=== PATIENT | female | born 1970 | race Caucasian/White ===

== ENCOUNTER 2016-10-18 10:55 | Emergency (ER) | payer MEDICAID ==
[2016-10-18] MEDS ORDERED: Ondansetron 4 MG/2 ML SDV IVPUSH ONE (11:31)
--- NOTE | 2016-10-18 11:36 | EDM.PDOC ---
[id number] 4d NAUSA AND STOMACH PAIN Time Seen by Provider: 10/18/16 11:33 Source: Reports: Patient History Limitations: Reports: No limitations - History of Present Illness INITIAL COMMENTS - FREE TEXT/NARRATIVE: pt is having severe lower abdomanal pain more on the rt than the left. She has had loose stools and she has been very nauseated. She has had a oopherectomy and hysterectomy. She has had abdomanal wall repair. She does not know if she still has her appendix, Timing/Duration: Reports: Day(s):, Getting worse Location: RLQ Quality: Reports: fullness, stabbing Associated Symptoms (-Female): Reports: diarrhea, nausea/vomiting - Related Data Allergies/ADRs: Allergies Allergy/AdvReac Type Severity Reaction Status Date / Time Penicillins Allergy Hives Verified 10/19/16 02:30 atorvastatin calcium AdvReac Leg Cramps Verified 10/19/16 02:30 [From Lipitor] gemfibrozil AdvReac Indigestion Verified 10/19/16 02:30 lisinopril AdvReac Cough Verified 10/19/16 02:30 Home Meds: Home Meds ClonazePAM [KlonoPIN] 0.5 mg PO BID PRN 10/28/14 [History] Escitalopram [Lexapro] 20 mg PO BID 10/28/14 [History] Fenofibrate Nanocrystallized [Fenofibrate] 145 mg PO DAILY 10/28/14 [History] Levothyroxine [Levothroid] 137 mcg PO DAILY 10/28/14 [History] Montelukast Sodium [Singulair] 10 mg PO DAILY 10/28/14 [History] Simvastatin [Zocor] 40 mg PO BEDTIME 10/28/14 [History] buPROPion [buPROPion XL] 300 mg PO DAILY 10/28/14 [History] metFORMIN [Glucophage] 1,000 mg PO DAILY PRN 10/28/14 [History] traZODone 50 mg PO BEDTIME PRN 10/28/14 [History] Albuterol [Ventolin HFA] 2 puff IH ASDIRECTED PRN 10/12/15 [History] Nitroglycerin [Nitrostat] 0.4 mg SL ASDIRECTED PRN 10/12/15 [History] Gabapentin [Neurontin] 600 mg PO TID 10/18/16 [History] Hydrochlorothiazide 25 mg PO DAILY 10/18/16 [History] Methocarbamol [Methocarbamol] 500 mg PO ASDIRECTED PRN 10/18/16 [History] Potassium Chloride 20 meq PO DAILY 10/19/16 [History] Past Medical History HEENT History: Reports: Impaired vision, Sinusitis Cardiovascular History: Reports: Angina, CAD, Heart murmur, High cholesterol, Hypertension Respiratory History: Reports: Asthma, Bronchitis, recurrent Gastrointestinal History: Reports: Cholelithiasis, GERD 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: Reports: Urinary incontinence 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: Musculoskeletal History: Reports: Arthritis, Back pain, chronic, Other (see below) Other Musculoskeletal History: spinal stenosis Neurological History: Reports: Headaches, chronic, Migraines Psychiatric History: Reports: Anxiety, Depression, Mood swings, Panic attack Other Psychiatric History: Seasonal affective disorder Endocrine/Metabolic History: Reports: Diabetes, type II, Hypothyroidism, Obesity /BMI 30+ - Infectious Disease History Infectious Disease History: Reports: Chicken pox - Past Surgical History HEENT Surgical History: Reports: Adenoidectomy, Tonsillectomy GI Surgical History: Reports: Cholecystectomy, Colonoscopy, EGD, Hernia repair/ other, Kayode fundoplication, Other (see below) Other GI Surgeries/Procedures: abdominal wall repair Female Surgical History: Reports: Hysterectomy, Salpingo-oophorectomy Other Female Surgeries/Procedures: Cervix removed, bladder reconstructive surgery, pelvic mass removal - still there, was suppose to 'shrivel up and go away on own'. Musculoskeletal Surgical History: Reports: Carpal tunnel Social & Family History - Family History Cardiac: Reports: CAD, Hypertension Psychiatric: Reports: Anxiety, Depression Endocrine/Metabolic: Reports: Diabetes, type II - Tobacco Use Smoking Status *Q: Heavy Tobacco Smoker Years of Tobacco use: 24 Packs/Tins Daily: 0.5 Used Tobacco, but Quit: Yes Month Tobacco Last Used: september 2015 Second Hand Smoke Exposure: No - Caffeine Use Caffeine Use: Reports: Soda - Alcohol Use Days Per Week of Alcohol Use: 0 - Recreational Drug Use Recreational Drug Use: No ED ROS GENERAL - Review of Systems Review Of Systems: See Below Constitutional: Reports: fever, chills, malaise HEENT: Reports: No symptoms Respiratory: Reports: No Symptoms Cardiovascular: Reports: No symptoms Endocrine: Reports: no symptoms GI/Abdominal: Reports: Abdominal pain, Other (Pt has lower abdomanal pain more on the rt than the left. ) : Reports: no symptoms Musculoskeletal: Reports: no symptoms Neurological: Reports: No Symptoms ED EXAM, GI/ABD - Physical Exam Exam: See Below Text/Narrative:: pt arrived experiencing lower abdomanal pain. She is wretching alot. She has had a previous sophy. She has been having loose stools. Exam Limited By: No limitations General Appearance: alert, moderate distress Ears: normal TMs Nose: normal inspection Throat/Mouth: Normal inspection Head: atraumatic Neck: normal inspection Respiratory/Chest: no respiratory distress Cardiovascular: regular rate, rhythm GI/Abdominal: other (pt has lower abdomanal tenderness. This is more on the rt than the left. She is tender but does not have true guarding present. ) Course - Vital Signs Last Recorded V/S: Last Vital Signs Temp 38.1 C 10/18/16 13:17 Pulse 66 10/18/16 14:07 Resp 15 10/18/16 14:07 BP 155/89 H 10/18/16 14:07 Pulse Ox 97 10/18/16 14:07 - Orders/Labs/Meds Labs: Laboratory Tests 10/18/16 10/18/16 10/18/16 Range/Units 11:37 11:42 11:42 WBC 11.4 H (4.5-11.0) K/uL RBC 4.69 (3.30-5.50) M/uL Hgb 12.4 (12.0-15.0) g/dL Hct 38.1 (36.0-48.0) % MCV 81 (80-98) fL MCH 26 L (27-31) pg MCHC 33 (32-36) % Plt Count 470 H (150-400) K/uL Neut % (Auto) 74 H (36-66) % Lymph % (Auto) 18 L (24-44) % [place] % (Auto) 7 H (2-6) % Eos % (Auto) 0 L (2-4) % Baso % (Auto) 0 (0-1) % Sodium 146 (140-148) mmol/L Potassium 2.9 L* (3.6-5.2) mmol/L Chloride 104 (100-108) mmol/L Carbon Dioxide 26 (21-32) mmol/L Anion Gap 18.9 H (5.0-14.0) mmol/L BUN 21 H (7-18) mg/dL Creatinine 1.1 H (0.6-1.0) mg/dL Est Cr Clr Drug Dosing 55.18 mL/min Estimated GFR (MDRD) 53 L (>60) Glucose 170 H (74-106) mg/dL Calcium 9.3 (8.5-10.1) mg/dL Total Bilirubin 0.3 (0.2-1.0) mg/dL AST 10 L (15-37) U/L ALT 23 (12-78) U/L Alkaline Phosphatase 66 (46-116) U/L C-Reactive Protein (0.0-0.3) mg/dL Total Protein 8.1 (6.4-8.2) g/dL Albumin 4.1 (3.4-5.0) g/dL Globulin 4.0 H (2.3-3.5) g/dL Albumin/Globulin Ratio 1.0 L (1.2-2.2) Lipase (73-393) U/L Urine Color Yellow Urine Appearance Cloudy Urine pH 6.0 (4.5-8.0) Ur Specific [place] 1.015 (1.008-1.030) Urine Protein 30 H (NEGATIVE) mg/dL Urine Glucose (UA) 250 H (NEGATIVE) mg/dL Urine Ketones Negative (NEGATIVE) mg/dL Urine Occult Blood Negative (NEGATIVE) Urine Nitrite Negative (NEGATIVE) Urine Bilirubin Small (NEGATIVE) Urine Urobilinogen 4 (NORMAL) mg/dL Ur Leukocyte Esterase Negative (NEGATIVE) Urine RBC Not seen (0-5) Urine WBC 0-5 (0-5) Ur Epithelial Cells Many Amorphous Sediment Not seen Urine Bacteria Moderate Urine Mucus Moderate 10/18/16 10/18/16 10/18/16 Range/Units 11:42 13:34 15:15 WBC (4.5-11.0) K/uL RBC (3.30-5.50) M/uL Hgb (12.0-15.0) g/dL Hct (36.0-48.0) % MCV (80-98) fL MCH (27-31) pg MCHC (32-36) % Plt Count (150-400) K/uL Neut % (Auto) (36-66) % Lymph % (Auto) (24-44) % [place] % (Auto) (2-6) % Eos % (Auto) (2-4) % Baso % (Auto) (0-1) % Sodium (140-148) mmol/L Potassium 3.1 L (3.6-5.2) mmol/L Chloride (100-108) mmol/L Carbon Dioxide (21-32) mmol/L Anion Gap (5.0-14.0) mmol/L BUN (7-18) mg/dL Creatinine (0.6-1.0) mg/dL Est Cr Clr Drug Dosing mL/min Estimated GFR (MDRD) (>60) Glucose (74-106) mg/dL Calcium (8.5-10.1) mg/dL Total Bilirubin (0.2-1.0) mg/dL AST (15-37) U/L ALT (12-78) U/L Alkaline Phosphatase (46-116) U/L C-Reactive Protein 0.19 (0.0-0.3) mg/dL Total Protein (6.4-8.2) g/dL Albumin (3.4-5.0) g/dL Globulin (2.3-3.5) g/dL Albumin/Globulin Ratio (1.2-2.2) Lipase 226 (73-393) U/L Urine Color Urine Appearance Urine pH (4.5-8.0) Ur Specific [place] (1.008-1.030) Urine Protein (NEGATIVE) mg/dL Urine Glucose (UA) (NEGATIVE) mg/dL Urine Ketones (NEGATIVE) mg/dL Urine Occult Blood (NEGATIVE) Urine Nitrite (NEGATIVE) Urine Bilirubin (NEGATIVE) Urine Urobilinogen (NORMAL) mg/dL Ur Leukocyte Esterase (NEGATIVE) Urine RBC (0-5) Urine WBC (0-5) Ur Epithelial Cells Amorphous Sediment Urine Bacteria Urine Mucus Meds: Medications Discontinued Medications Generic Name Dose Route Start Last Admin Trade Name Freq PRN Reason Stop Dose Admin Hydromorphone HCl 0.5 mg 10/18/16 12:20 10/18/16 12:48 Dilaudid IVPUSH 10/18/16 12:21 0.5 mg ONETIME ONE Administration Sodium Chloride 1,000 mls @ 999 mls/hr 10/18/16 11:45 10/18/16 11:56 Normal Saline IV 999 mls/hr ASDIRECTED RAMÓN Administration Potassium Chloride 20 meq/ 100 mls @ 50 mls/hr 10/18/16 12:17 10/18/16 13:10 Premix IV 10/18/16 14:16 Not Given ONETIME ONE Potassium Chloride 20 meq/ 112 mls @ 56 mls/hr 10/18/16 13:00 10/18/16 12:39 Lidocaine HCl 2 ml/ Sodium IV 10/18/16 14:59 56 mls/hr Chloride ONETIME ONE Administration Sodium Chloride 70 mls @ 3 mls/sec 10/18/16 12:53 10/18/16 13:00 Normal Saline IV 10/18/16 12:54 3 mls/sec ASDIRECTED ONE Administration Sodium Chloride 1,000 mls @ 500 mls/hr 10/18/16 13:45 10/18/16 13:49 Normal Saline IV 500 mls/hr ASDIRECTED RAMÓN Administration Sodium Chloride 1,000 mls @ 300 mls/hr 10/18/16 16:00 10/18/16 15:57 Normal Saline IV 300 mls/hr ASDIRECTED RAMÓN Administration Iopamidol 100 ml 10/18/16 12:53 10/18/16 13:01 Isovue-300 (61%) IV 10/18/16 12:54 100 ml . DIRECTED PRN Administration RADIOLOGY EXAM Ketorolac Tromethamine 30 mg 10/18/16 14:58 10/18/16 15:50 Toradol IVPUSH 10/18/16 14:59 30 mg ONETIME ONE Administration Lidocaine HCl 5 ml 10/18/16 12:17 10/18/16 12:43 Xylocaine-Mpf 1% INJECT 10/18/16 12:18 Not Given ONETIME ONE Lidocaine HCl 5 ml 10/18/16 16:32 10/18/16 17:51 Xylocaine-Mpf 1% INJECT 10/18/16 16:33 Not Given ONETIME ONE Ondansetron HCl 4 mg 10/18/16 11:31 10/18/16 11:53 Zofran IVPUSH 10/18/16 11:32 4 mg ONETIME ONE Administration Sodium Chloride 10 ml 10/18/16 12:53 10/18/16 13:00 Saline Flush FLUSH 10/18/16 12:54 10 ml . DIRECTED PRN Administration [id number] EXAM - Re-Assessments/Exams Free Text/Narrative Re-Assessment/Exam: 10/18/16 17:44 pt arrived with pain in lower abdoman and diarrhea. She had a neg cat scan of the abdoman. She had a k level of 2.9. . She was given kcl 20meq. A second kwas ordered and it was 3.1 She has not had any loose stools since she was here. Her pain is better. She is holding fluids down. 10/24/16 08:14 Departure - Departure Time of Disposition: 17:49 Disposition: Home, Self-Care 01 Condition: fair Clinical Impression: Abdominal pain, Hypokalemia, Dehydration, Viral illness Instructions: Hypokalemia, Abdominal Pain, Adult, [id number], Dehydration, Adult Referrals: Alfred Chan, LYNDA [Primary Care Provider] - Forms: ED Department Discharge Care Plan Goals: clear liquids, kcl 20meq daily, no work until Sunday, advance diet as tolerated. rtc if increased problem. Hosp admission was discussed with her and she wished to try it at home. see regular Dr and recheck potassium in 1 week.
[2016-10-18] MEDS ORDERED: Sodium Chloride 0.9% 1,000 ML IV SCH ×3 (11:45→16:00)
[2016-10-18] MEDS ORDERED: Potassium Chloride 20 MEQ in Premix Bag 1 BAG IV ONE (12:17)
[2016-10-18] MEDS ORDERED: HYDROmorphone 0.5 MG/0.5 ML Syringe IVPUSH ONE (12:20)
[2016-10-18] MEDS ORDERED: Iopamidol 612 MG/ML 100 ML Bottle IV PRN (12:53)
[2016-10-18] MEDS ORDERED: Sodium Chloride 0.9% 10 ML Syringe FLUSH PRN (12:53)
[2016-10-18] MEDS ORDERED: Potassium Chloride 20 MEQ, Lidocaine 1% 2 ML in Sodium Chloride 0.9% 100 ML IV ONE (13:00)
--- NOTE | 2016-10-18 13:31 | CT ---
Abdomen Pelvis w Cont Total DLP 871mGycm. INDICATION: lower abdominal pain COMPARISON: None. FINDINGS: Postoperative changes at the GE junction. Fatty infiltration of the liver. Cholecystectomy . Right renal cysts. Left pelvic kidney. Hysterectomy. Small left inguinal hernia containing a loop of nonobstructed small bowel. Tiny fluid collection superior and to the left of the bladder is uncha nged since prior exam and may represent a small ureterocele or diverticulum. Normal appendix. Transi tional lumbosacral segment with a pseudoarticulation on the left. Lumbar facet arthropathy. Postoper ative changes of the lower anterior abdominal wall. Exam otherwise unremarkable. IMPRESSION: No acute findings in the abdomen or pelvis. There has been little change since 04/06/2015 .
[2016-10-18 14:08] VITALS: BP 155/89
[2016-10-18] MEDS ORDERED: Ketorolac 30 MG/ML SDV IVPUSH ONE (14:58)
== END 2016-10-18 18:07 | disposition home or self-care (01) ==
LOC: JP.ED 11:00
DX: R10.31 Right lower quadrant pain (principal); E11.9 Type 2 diabetes mellitus without complications; E03.9 Hypothyroidism, unspecified; I25.10 Atherosclerotic heart disease of native coronary artery without angina pectoris; K21.9 Gastro-esophageal reflux disease without esophagitis; E87.6 Hypokalemia; E86.0 Dehydration; B34.9 Viral infection, unspecified; E66.9 Obesity, unspecified; J45.909 Unspecified asthma, uncomplicated; M54.9 Dorsalgia, unspecified; F17.210 Nicotine dependence, cigarettes, uncomplicated; Z90.49 Acquired absence of other specified parts of digestive tract; Z90.89 Acquired absence of other organs; G89.29 Other chronic pain; Z79.84 Long term (current) use of oral hypoglycemic drugs; Z79.899 Other long term (current) drug therapy; Z88.0 Allergy status to penicillin; Z88.8 Allergy status to other drugs, medicaments and biological substances
CPT/HCPCS: 36415; 74177; 80053; 81001; 83690; 84132; 85025; 86140; 87086; 96361; 96374; 96375; 99284; J1170; J1885; J2405; J3480; J7030; J7040; J7050; Q9967

== ENCOUNTER 2016-10-19 02:21 | Emergency (ER) | payer MEDICAID ==
[2016-10-19] MEDS ORDERED: Lactated Ringers 1,000 ML IV ONE (02:54)
[2016-10-19] MEDS ORDERED: Ondansetron 4 MG/2 ML SDV IVPUSH ONE (02:56)
[2016-10-19] MEDS ORDERED: diphenhydrAMINE 50 MG/ML SDV IVPUSH STA (03:01)
[2016-10-19] MEDS ORDERED: Potassium Chloride 20 MEQ in Premix Bag 1 BAG IV ONE (04:01)
[2016-10-19] MEDS ORDERED: Lactated Ringers 1,000 ML IV SCH (04:15)
--- NOTE | 2016-10-19 06:44 | EDM.PDOC ---
ED HPI GI/ABDOMINAL - General Chief Complaint: Gastrointestinal Problem Stated Complaint: VOMITING Time Seen by Provider: 10/19/16 02:43 Source: Reports: Patient History Limitations: Reports: No limitations - History of Present Illness INITIAL COMMENTS - FREE TEXT/NARRATIVE: History of present illness: [46-year-old female was here yesterday with some nausea vomiting diarrhea and received IV fluids and replacement therapy for a low potassium. She returns with similar symptoms although she feels like her diarrhea is slowing down. She 's had no fevers or chills or blood in her stools. She started feeling weak and dehydrated again and so came in. She had a negative abdominal pelvic CT when she was here yesterday.] Review of systems: As per history of present illness and below otherwise all systems reviewed and negative. Past medical history: As per history of present illness and as reviewed below otherwise noncontributory. Surgical history: As per history of present illness and as reviewed below otherwise noncontributory. Social history: No reported history of drug or alcohol abuse. Family history: As per history of present illness and as reviewed below otherwise noncontributory. Physical exam: HEENT: Atraumatic, normocephalic, pupils reactive, negative for conjunctival pallor or scleral icterus, mucous membranes dry, throat clear, neck supple, nontender, trachea midline. Lungs: Clear to auscultation, breath sounds equal bilaterally Heart: S1S2, regular, negative for clicks, rubs, or JVD. Abdomen: Soft, nondistended, nontender. Negative for masses or hepatosplenomegaly. Pelvis: Stable nontender. Genitourinary: Deferred. Rectal: Deferred. Extremities: Atraumatic, negative for cords or calf pain. Neurovascular unremarkable. Neuro: Awake, alert, oriented. Cranial nerves II through XII unremarkable. Cerebellum unremarkable. Motor and sensory unremarkable throughout. Exam nonfocal. Diagnostics: [CBC basic metabolic panel were done and most significant finding was a potassium of 3.0.] Therapeutics: [She was on lactated Ringer's while here and also I did give her a bolus of potassium IV and had her drink some potassium as well. She is feeling better and sleeping now and her IV fluids her almost on him so we will be discharging her and hopefully will have helped her get over the hump of this illness.] Impression: [Nausea vomiting and diarrhea] Plan: [She does have a history of a Kayode fundoplication and so if this problem persists or one needs to consider the possibility that some how that's giving her trouble and so she would need to followup in the clinic to pursue that consideration] Definitive disposition and diagnosis as appropriate pending reevaluation and review of above. - Related Data Allergies/ADRs: Allergies Allergy/AdvReac Type Severity Reaction Status Date / Time Penicillins Allergy Hives Verified 10/19/16 02:30 atorvastatin calcium AdvReac Leg Cramps Verified 10/19/16 02:30 [From Lipitor] gemfibrozil AdvReac Indigestion Verified 10/19/16 02:30 lisinopril AdvReac Cough Verified 10/19/16 02:30 Home Meds: Home Meds ClonazePAM [KlonoPIN] 0.5 mg PO BID PRN 10/28/14 [History] Escitalopram [Lexapro] 20 mg PO BID 10/28/14 [History] Fenofibrate Nanocrystallized [Fenofibrate] 145 mg PO DAILY 10/28/14 [History] Levothyroxine [Levothroid] 137 mcg PO DAILY 10/28/14 [History] Montelukast Sodium [Singulair] 10 mg PO DAILY 10/28/14 [History] Simvastatin [Zocor] 40 mg PO BEDTIME 10/28/14 [History] buPROPion [buPROPion XL] 300 mg PO DAILY 10/28/14 [History] metFORMIN [Glucophage] 1,000 mg PO DAILY PRN 10/28/14 [History] traZODone 50 mg PO BEDTIME PRN 10/28/14 [History] Albuterol [Ventolin HFA] 2 puff IH ASDIRECTED PRN 10/12/15 [History] Nitroglycerin [Nitrostat] 0.4 mg SL ASDIRECTED PRN 10/12/15 [History] Gabapentin [Neurontin] 600 mg PO TID 10/18/16 [History] Hydrochlorothiazide 25 mg PO DAILY 10/18/16 [History] Methocarbamol [Methocarbamol] 500 mg PO ASDIRECTED PRN 10/18/16 [History] Past Medical History HEENT History: Reports: Impaired vision, Sinusitis Cardiovascular History: Reports: Angina, CAD, Heart murmur, High cholesterol, Hypertension Respiratory History: Reports: Asthma, Bronchitis, recurrent Gastrointestinal History: Reports: Cholelithiasis, GERD 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: 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: Musculoskeletal History: Reports: Arthritis, Back pain, chronic, Other (see below) Other Musculoskeletal History: spinal stenosis Neurological History: Reports: Headaches, chronic, Migraines Psychiatric History: Reports: Anxiety, Depression, Mood swings, Panic attack Other Psychiatric History: Seasonal affective disorder Endocrine/Metabolic History: Reports: Diabetes, type II, Hypothyroidism, Obesity /BMI 30+ - Infectious Disease History Infectious Disease History: Reports: Chicken pox - Past Surgical History HEENT Surgical History: Reports: Adenoidectomy, Tonsillectomy GI Surgical History: Reports: Cholecystectomy, Colonoscopy, EGD, Hernia repair/ other, Kayode fundoplication, Other (see below) Other GI Surgeries/Procedures: abdominal wall repair Female Surgical History: Reports: Hysterectomy, Salpingo-oophorectomy Other Female Surgeries/Procedures: Cervix removed, bladder reconstructive surgery, pelvic mass removal - still there, was suppose to 'shrivel up and go away on own'. Musculoskeletal Surgical History: Reports: Carpal tunnel Social & Family History - Family History Cardiac: Reports: CAD, Hypertension Psychiatric: Reports: Anxiety, Depression Endocrine/Metabolic: Reports: Diabetes, type II - Tobacco Use Smoking Status *Q: Current Every Day Smoker Years of Tobacco use: 30 Packs/Tins Daily: 0.5 Used Tobacco, but Quit: No Month Tobacco Last Used: september 2015 Second Hand Smoke Exposure: Yes - Caffeine Use Caffeine Use: Reports: Soda - Alcohol Use Days Per Week of Alcohol Use: 0 - Recreational Drug Use Recreational Drug Use: No ED ROS GENERAL - Review of Systems Review Of Systems: ROS reveals no pertinent complaints other than HPI. ED EXAM, GI/ABD - Physical Exam Exam: See Below Course - Vital Signs Last Recorded V/S: Last Vital Signs Temp 36.4 C 10/19/16 02:38 Pulse 56 L 10/19/16 02:38 Resp 20 10/19/16 02:38 BP 141/98 H 10/19/16 02:38 Pulse Ox 98 10/19/16 02:38 - Orders/Labs/Meds Orders: Active Orders 24 hr Category Date Time Status Lactated Ringers [Ringers, Lactated] 1,000 ml Med 10/19/16 04:15 Active IV ASDIRECTED Medication Orders Lactated Ringer's (Ringers, Lactated) 1,000 mls @ 999 mls/hr IV ASDIRECTED RAMÓN Last Admin: 10/19/16 04:12 Dose: 999 mls/hr Labs: Laboratory Tests 10/19/16 10/19/16 Range/Units 02:54 02:54 WBC 9.5 (4.5-11.0) K/uL RBC 4.52 (3.30-5.50) M/uL Hgb 11.7 L (12.0-15.0) g/dL Hct 37.5 (36.0-48.0) % MCV 83 (80-98) fL MCH 26 L (27-31) pg MCHC 31 L (32-36) % Plt Count 423 H (150-400) K/uL Neut % (Auto) 67 H (36-66) % Lymph % (Auto) 27 (24-44) % [place] % (Auto) 6 (2-6) % Eos % (Auto) 0 L (2-4) % Baso % (Auto) 0 (0-1) % Sodium 147 (140-148) mmol/L Potassium 3.0 L (3.6-5.2) mmol/L Chloride 109 H (100-108) mmol/L Carbon Dioxide 25 (21-32) mmol/L Anion Gap 16.0 H (5.0-14.0) mmol/L BUN 20 H (7-18) mg/dL Creatinine 1.0 (0.6-1.0) mg/dL Est Cr Clr Drug Dosing 60.70 mL/min Estimated GFR (MDRD) 60 (>60) Glucose 181 H (74-106) mg/dL Calcium 9.1 (8.5-10.1) mg/dL Meds: Medications Generic Name Dose Route Start Last Admin Trade Name Freq PRN Reason Stop Dose Admin Lactated Ringer's 1,000 mls @ 999 mls/hr 10/19/16 04:15 10/19/16 04:12 Ringers, Lactated IV 999 mls/hr ASDIRECTED RAMÓN Administration Discontinued Medications Generic Name Dose Route Start Last Admin Trade Name Freq PRN Reason Stop Dose Admin Diphenhydramine HCl 25 mg 10/19/16 03:01 10/19/16 03:08 Benadryl IVPUSH 04/13/17 03:02 25 mg NOW STA Administration Lactated Ringer's 1,000 mls @ 999 mls/hr 10/19/16 02:54 10/19/16 03:06 Ringers, Lactated IV 10/19/16 03:54 999 mls/hr BOLUS ONE Administration Potassium Chloride 20 meq/ 100 mls @ 50 mls/hr 10/19/16 04:01 10/19/16 04:37 Premix IV 10/19/16 06:00 50 mls/hr ONETIME ONE Administration Lidocaine HCl 2 ml 10/19/16 04:21 10/19/16 04:39 Xylocaine-Mpf 1% INJECT 10/19/16 04:22 2 ml ONETIME ONE Administration Ondansetron HCl 4 mg 10/19/16 02:56 10/19/16 03:07 Zofran IVPUSH 10/19/16 02:57 4 mg ONETIME ONE Administration Departure - Departure Time of Disposition: 06:42 Disposition: Home, Self-Care 01 Condition: good Clinical Impression: Nausea and vomiting Qualifiers: Vomiting type: unspecified Vomiting Intractability: non-intractable Qualified Code(s): R11.2 - Nausea with vomiting, unspecified Diarrhea Qualifiers: Diarrhea type: unspecified type Qualified Code(s): R19.7 - Diarrhea, unspecified Forms: ED Department Discharge Additional Instructions: Please do not hesitate to return if you feel like you are getting dehydrated again and need more IV fluids. As we discussed if this problem persists perhaps you should followup with her doctor as your prior surgery the Kayode fundoplication could possibly be contributing to your problem. - My Orders Last 24 Hours: My Active Orders 10/19/16 04:15 Lactated Ringers [Ringers, Lactated] 1,000 ml IV ASDIRECTED - Assessment/Plan Last 24 Hours: My Active Orders 10/19/16 04:15 Lactated Ringers [Ringers, Lactated] 1,000 ml IV ASDIRECTED
[2016-10-19 07:18] VITALS: BP 149/98
== END 2016-10-19 07:22 | disposition home or self-care (01) ==
LOC: JP.ED 02:21
DX: R11.2 Nausea with vomiting, unspecified (principal); R19.7 Diarrhea, unspecified; I20.9 Angina pectoris, unspecified; I25.10 Atherosclerotic heart disease of native coronary artery without angina pectoris; I10 Essential (primary) hypertension; E78.00 Pure hypercholesterolemia, unspecified; J45.909 Unspecified asthma, uncomplicated; F32.9 Major depressive disorder, single episode, unspecified; F41.0 Panic disorder [episodic paroxysmal anxiety]; E03.9 Hypothyroidism, unspecified; E11.9 Type 2 diabetes mellitus without complications; F17.210 Nicotine dependence, cigarettes, uncomplicated; E66.9 Obesity, unspecified; Z68.34 Body mass index [BMI] 34.0-34.9, adult; Z90.49 Acquired absence of other specified parts of digestive tract; Z90.710 Acquired absence of both cervix and uterus; Z90.721 Acquired absence of ovaries, unilateral; Z98.890 Other specified postprocedural states; Z79.899 Other long term (current) drug therapy; Z88.0 Allergy status to penicillin; Z88.8 Allergy status to other drugs, medicaments and biological substances
CPT/HCPCS: 36415; 80048; 85025; 96361; 96374; 96375; 99284; J1200; J2405; J3480; J7120

== ENCOUNTER 2016-10-20 12:53 | Emergency (ER) | payer MEDICAID ==
[2016-10-20] MEDS ORDERED: Sodium Chloride 0.9% 1,000 ML IV SCH (16:00)
--- NOTE | 2016-10-20 16:03 | EDM.PDOC ---
ED HPI GI/ABDOMINAL - General Chief Complaint: Gastrointestinal Problem Stated Complaint: NAUSEA/VOMITING Time Seen by Provider: 10/20/16 15:06 Source: Reports: Patient History Limitations: Reports: No limitations - History of Present Illness INITIAL COMMENTS - FREE TEXT/NARRATIVE: This patient comes in with nausea and vomiting. It's been going on for one week since last Sunday. She came to the emergency room department at that time and Dr. Olivera wanted to admit her but the patient wanted to try at home. She said a she went home and 8 hours later she had to come back to the ER. She continues to try to drink liquids but just can't hold anything down. Basically she cannot eat or drink anything. She had a little bit of fever 2 days ago. Initially Zofran helped her hold down clear liquids but doesn't seem to help anymore. She's a little bit dizzy standing. She does have just a little bit of pain in the right infrascapular area and it hurts a little bit to breathe. She denies shortness of breath. She said previously an abdominal CT was negative She had a little bit of diarrhea at the beginning of this illness then it stopped. She started having some diarrhea this morning but took some Imodium and it helped. She has a history of diabetes and asthma. - Related Data Allergies/ADRs: Allergies Allergy/AdvReac Type Severity Reaction Status Date / Time Penicillins Allergy Hives Verified 10/19/16 02:30 atorvastatin calcium AdvReac Leg Cramps Verified 10/19/16 02:30 [From Lipitor] gemfibrozil AdvReac Indigestion Verified 10/19/16 02:30 lisinopril AdvReac Cough Verified 10/19/16 02:30 Home Meds: Home Meds ClonazePAM [KlonoPIN] 0.5 mg PO BID PRN 10/28/14 [History] Escitalopram [Lexapro] 20 mg PO BID 10/28/14 [History] Fenofibrate Nanocrystallized [Fenofibrate] 145 mg PO DAILY 10/28/14 [History] Levothyroxine [Levothroid] 137 mcg PO DAILY 10/28/14 [History] Montelukast Sodium [Singulair] 10 mg PO DAILY 10/28/14 [History] Simvastatin [Zocor] 40 mg PO BEDTIME 10/28/14 [History] buPROPion [buPROPion XL] 300 mg PO DAILY 10/28/14 [History] metFORMIN [Glucophage] 1,000 mg PO DAILY PRN 10/28/14 [History] traZODone 50 mg PO BEDTIME PRN 10/28/14 [History] Albuterol [Ventolin HFA] 2 puff IH ASDIRECTED PRN 10/12/15 [History] Nitroglycerin [Nitrostat] 0.4 mg SL ASDIRECTED PRN 10/12/15 [History] Gabapentin [Neurontin] 600 mg PO TID 10/18/16 [History] Hydrochlorothiazide 25 mg PO DAILY 10/18/16 [History] Methocarbamol [Methocarbamol] 500 mg PO ASDIRECTED PRN 10/18/16 [History] Potassium Chloride 20 meq PO DAILY 10/19/16 [History] Past Medical History HEENT History: Reports: Impaired vision, Sinusitis Cardiovascular History: Reports: Angina, CAD, Heart murmur, High cholesterol, Hypertension Respiratory History: Reports: Asthma, Bronchitis, recurrent Gastrointestinal History: Reports: Cholelithiasis, GERD 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: Reports: Urinary incontinence [employer] WORKER History: Reports: Musculoskeletal History: Reports: Arthritis, Back pain, chronic, Other (see below) Other Musculoskeletal History: spinal stenosis Neurological History: Reports: Headaches, chronic, Migraines Psychiatric History: Reports: Anxiety, Depression, Mood swings, Panic attack Other Psychiatric History: Seasonal affective disorder Endocrine/Metabolic History: Reports: Diabetes, type II, Hypothyroidism, Obesity /BMI 30+ - Infectious Disease History Infectious Disease History: Reports: Chicken pox - Past Surgical History HEENT Surgical History: Reports: Adenoidectomy, Tonsillectomy GI Surgical History: Reports: Cholecystectomy, Colonoscopy, EGD, Hernia repair/ other, Akyode fundoplication, Other (see below) Other GI Surgeries/Procedures: abdominal wall repair Female Surgical History: Reports: Hysterectomy, Salpingo-oophorectomy Other Female Surgeries/Procedures: Cervix removed, bladder reconstructive surgery, pelvic mass removal - still there, was suppose to 'shrivel up and go away on own'. Musculoskeletal Surgical History: Reports: Carpal tunnel Social & Family History - Family History Cardiac: Reports: CAD, Hypertension Psychiatric: Reports: Anxiety, Depression Endocrine/Metabolic: Reports: Diabetes, type II - Tobacco Use Smoking Status *Q: Current Some Day Smoker Years of Tobacco use: 30 Packs/Tins Daily: 0.5 Used Tobacco, but Quit: No Month Tobacco Last Used: september 2015 Second Hand Smoke Exposure: No - Caffeine Use Caffeine Use: Reports: Coffee Other Caffeine Use: 1 cup a day - Alcohol Use Days Per Week of Alcohol Use: 0 - Recreational Drug Use Recreational Drug Use: No ED ROS GENERAL - Review of Systems Review Of Systems: See Below Constitutional: Reports: chills, weakness, fatigue HEENT: Reports: No symptoms Respiratory: Reports: No Symptoms, Other (See HPI) Cardiovascular: Reports: No symptoms Endocrine: Reports: no symptoms GI/Abdominal: Reports: Diarrhea, Nausea, Vomiting. Denies: Abdominal pain : Reports: no symptoms Musculoskeletal: Reports: no symptoms Skin: Reports: no symptoms Neurological: Reports: No Symptoms Psychiatric: Reports: No symptoms ED EXAM, GI/ABD - Physical Exam Exam: See Below Exam Limited By: No limitations General Appearance: alert, obese (As well as a data data thus 5) Eyes: bilateral: normal appearance Ears: normal external exam Nose: normal inspection Throat/Mouth: Normal oropharynx Head: atraumatic Neck: normal inspection Respiratory/Chest: lungs clear, normal breath sounds, other (There some mild tenderness in the right infrascapular area) Cardiovascular: normal peripheral pulses, regular rate, rhythm, no murmur GI/Abdominal: soft, non tender Extremities: normal inspection Neurological: alert, oriented, CN II-XII intact, no motor/sensory deficits Psychiatric: normal affect Skin Exam: Warm, Dry Course - Vital Signs Last Recorded V/S: Last Vital Signs Temp 37.3 C 10/20/16 15:06 Pulse 50 L 10/20/16 17:16 Resp 20 10/20/16 17:16 BP 140/80 10/20/16 17:16 Pulse Ox 100 10/20/16 17:16 - Orders/Labs/Meds Orders: Active Orders 24 hr Category Date Time Status EKG Documentation Completion [RC] ASDIRECTED Care 10/20/16 15:57 Active Chest 2V [CR] Urgent Exams 10/20/16 15:56 Taken Sodium Chloride 0.9% [Normal Saline] 1,000 ml Med 10/20/16 16:00 Active IV ASDIRECTED EKG 12 Lead [EK] Urgent Ther 10/20/16 15:56 Ordered Medication Orders Sodium Chloride (Normal Saline) 1,000 mls @ 999 mls/hr IV ASDIRECTED RAMÓN Last Admin: 10/20/16 16:37 Dose: 999 mls/hr Labs: Laboratory Tests 10/20/16 10/20/16 10/20/16 Range/Units 16:06 16:06 16:06 WBC 8.7 (4.5-11.0) K/uL RBC 4.46 (3.30-5.50) M/uL Hgb 11.5 L (12.0-15.0) g/dL Hct 36.5 (36.0-48.0) % MCV 82 (80-98) fL MCH 26 L (27-31) pg MCHC 32 (32-36) % Plt Count 375 (150-400) K/uL Neut % (Auto) 68 H (36-66) % Lymph % (Auto) 24 (24-44) % [place] % (Auto) 7 H (2-6) % Eos % (Auto) 0 L (2-4) % Baso % (Auto) 1 (0-1) % D-Dimer, Quantitative 138 (0.0-400.0) ng/mL Sodium 145 (140-148) mmol/L Potassium 3.1 L (3.6-5.2) mmol/L Chloride 108 (100-108) mmol/L Carbon Dioxide 23 (21-32) mmol/L Anion Gap 17.1 H (5.0-14.0) mmol/L BUN 18 (7-18) mg/dL Creatinine 0.9 (0.6-1.0) mg/dL Est Cr Clr Drug Dosing 67.45 mL/min Estimated GFR (MDRD) > 60 (>60) Glucose 152 H (74-106) mg/dL Calcium 8.8 (8.5-10.1) mg/dL Total Bilirubin 0.3 (0.2-1.0) mg/dL AST 12 L (15-37) U/L ALT 18 (12-78) U/L Alkaline Phosphatase 58 (46-116) U/L Troponin I < 0.017 (0.000-0.056) ng/mL Total Protein 7.2 (6.4-8.2) g/dL Albumin 3.7 (3.4-5.0) g/dL Globulin 3.5 (2.3-3.5) g/dL Albumin/Globulin Ratio 1.1 L (1.2-2.2) Urine Color Urine Appearance Urine pH (4.5-8.0) Ur Specific [place] (1.008-1.030) Urine Protein (NEGATIVE) mg/dL Urine Glucose (UA) (NEGATIVE) mg/dL Urine Ketones (NEGATIVE) mg/dL Urine Occult Blood (NEGATIVE) Urine Nitrite (NEGATIVE) Urine Bilirubin (NEGATIVE) Urine Urobilinogen (NORMAL) mg/dL Ur Leukocyte Esterase (NEGATIVE) Urine RBC (0-5) Urine WBC (0-5) Ur Epithelial Cells Amorphous Sediment Urine Bacteria Urine Mucus 10/20/16 Range/Units 18:31 WBC (4.5-11.0) K/uL RBC (3.30-5.50) M/uL Hgb (12.0-15.0) g/dL Hct (36.0-48.0) % MCV (80-98) fL MCH (27-31) pg MCHC (32-36) % Plt Count (150-400) K/uL Neut % (Auto) (36-66) % Lymph % (Auto) (24-44) % [place] % (Auto) (2-6) % Eos % (Auto) (2-4) % Baso % (Auto) (0-1) % D-Dimer, Quantitative (0.0-400.0) ng/mL Sodium (140-148) mmol/L Potassium (3.6-5.2) mmol/L Chloride (100-108) mmol/L Carbon Dioxide (21-32) mmol/L Anion Gap (5.0-14.0) mmol/L BUN (7-18) mg/dL Creatinine (0.6-1.0) mg/dL Est Cr Clr Drug Dosing mL/min Estimated GFR (MDRD) (>60) Glucose (74-106) mg/dL Calcium (8.5-10.1) mg/dL Total Bilirubin (0.2-1.0) mg/dL AST (15-37) U/L ALT (12-78) U/L Alkaline Phosphatase (46-116) U/L Troponin I (0.000-0.056) ng/mL Total Protein (6.4-8.2) g/dL Albumin (3.4-5.0) g/dL Globulin (2.3-3.5) g/dL Albumin/Globulin Ratio (1.2-2.2) Urine Color Yellow Urine Appearance Slightly cloudy Urine pH 8.0 (4.5-8.0) Ur Specific [place] 1.020 (1.008-1.030) Urine Protein Negative (NEGATIVE) mg/dL Urine Glucose (UA) 50 H (NEGATIVE) mg/dL Urine Ketones Negative (NEGATIVE) mg/dL Urine Occult Blood Negative (NEGATIVE) Urine Nitrite Negative (NEGATIVE) Urine Bilirubin Negative (NEGATIVE) Urine Urobilinogen 4 (NORMAL) mg/dL Ur Leukocyte Esterase Negative (NEGATIVE) Urine RBC 0-5 (0-5) Urine WBC 0-5 (0-5) Ur Epithelial Cells Moderate Amorphous Sediment Moderate Urine Bacteria Few Urine Mucus Numerous Meds: Medications Generic Name Dose Route Start Last Admin Trade Name Freq PRN Reason Stop Dose Admin Sodium Chloride 1,000 mls @ 999 mls/hr 10/20/16 16:00 10/20/16 16:37 Normal Saline IV 999 mls/hr ASDIRECTED RAMÓN Administration Discontinued Medications Generic Name Dose Route Start Last Admin Trade Name Freq PRN Reason Stop Dose Admin Ketorolac Tromethamine 30 mg 10/20/16 18:00 10/20/16 18:19 Toradol IVPUSH 10/20/16 18:01 30 mg ONETIME ONE Administration Ondansetron HCl 4 mg 10/20/16 17:42 10/20/16 17:55 Zofran IVPUSH 10/20/16 17:43 4 mg ONETIME ONE Administration - Radiology Interpretation Free Text/Narrative:: Normal heart size normal lung markings - Re-Assessments/Exams Free Text/Narrative Re-Assessment/Exam: 10/20/16 19:12 The patient received 1 L of IV normal saline felt much better. She also received Toradol 30 mg IV for her infrascapular pain that has been relieved. She's feeling a lot better now. We discussed a clear liquid diet. She has plenty of Zofran at home. She's also been using some Imodium we also discussed potassium replacement Departure - Departure Time of Disposition: 19:13 Disposition: Home, Self-Care 01 Condition: fair Clinical Impression: Acute gastroenteritis Forms: ED Department Discharge Additional Instructions: Start off with a clear liquid diet. A good one would be something like Gatorade with the addition of about 1/4 teaspoon of salt and about 1/2 teaspoon of salt substitute (salt substitute is potassium) add this to 1 quart. It should be just enough to barely taste it. You should drink at least about 3 quarts per day. He do this for the next couple of days. Start adding in a bland diet also. Rice is a good food to start with. You can advance her diet as tolerated. If you have diarrhea the use Imodium. Use Tylenol if needed for pain. See your Dr. if no better in 2 or 3 days - My Orders Last 24 Hours: My Active Orders 10/20/16 15:56 Chest 2V [CR] Urgent EKG 12 Lead [EK] Urgent 10/20/16 15:57 EKG Documentation Completion [RC] ASDIRECTED 10/20/16 16:00 Sodium Chloride 0.9% [Normal Saline] 1,000 ml IV ASDIRECTED - Assessment/Plan Last 24 Hours: My Active Orders 10/20/16 15:56 Chest 2V [CR] Urgent EKG 12 Lead [EK] Urgent 10/20/16 15:57 EKG Documentation Completion [RC] ASDIRECTED 10/20/16 16:00 Sodium Chloride 0.9% [Normal Saline] 1,000 ml IV ASDIRECTED
[2016-10-20] MEDS ORDERED: Ondansetron 4 MG/2 ML SDV IVPUSH ONE (17:42)
[2016-10-20] MEDS ORDERED: Ketorolac 30 MG/ML SDV IVPUSH ONE (18:00)
[2016-10-20 19:15] VITALS: BP 140/68
--- NOTE | 2016-10-23 09:21 | CR ---
Chest 2V HISTORY: No Clinical Info FINDINGS: Heart size within normal limits. Pulmonary vasculature within normal limits. No evidence f or focal consolidation or cardiopulmonary process. IMPRESSION: No radiographic evidence for acute cardiopulmonary process.
== END 2016-10-20 19:38 | disposition home or self-care (01) ==
LOC: JP.ED 12:53
DX: K52.9 Noninfective gastroenteritis and colitis, unspecified (principal); I25.10 Atherosclerotic heart disease of native coronary artery without angina pectoris; I20.9 Angina pectoris, unspecified; I10 Essential (primary) hypertension; E78.00 Pure hypercholesterolemia, unspecified; J45.909 Unspecified asthma, uncomplicated; K21.9 Gastro-esophageal reflux disease without esophagitis; F32.9 Major depressive disorder, single episode, unspecified; F41.0 Panic disorder [episodic paroxysmal anxiety]; E11.9 Type 2 diabetes mellitus without complications; E03.9 Hypothyroidism, unspecified; F17.210 Nicotine dependence, cigarettes, uncomplicated; E66.9 Obesity, unspecified; Z68.33 Body mass index [BMI] 33.0-33.9, adult; Z90.49 Acquired absence of other specified parts of digestive tract; Z90.710 Acquired absence of both cervix and uterus; Z90.721 Acquired absence of ovaries, unilateral; Z98.890 Other specified postprocedural states; Z79.899 Other long term (current) drug therapy; Z88.0 Allergy status to penicillin; Z88.8 Allergy status to other drugs, medicaments and biological substances
CPT/HCPCS: 36415; 71020; 80053; 81001; 84484; 85025; 85379; 93005; 96361; 96374; 96375; 99284; J1885; J2405; J7040

== ENCOUNTER 2016-12-29 07:01 | Day surgery (SDC) | payer MEDICAID ==
[2016-12-29] MEDS ORDERED: Dextrose 5%-Lactated Ringers 1,000 ML IV SCH (08:30)
[2016-12-29] MEDS ORDERED: fentaNYL 100 MCG/2 ML SDV ONE (08:59)
[2016-12-29] MEDS ORDERED: Propofol 200 MG/20 ML SDV ONE (08:59)
[2016-12-29] MEDS ORDERED: Midazolam 1 MG/ML 2 ML SDV ONE (09:00)
[2016-12-29] MEDS ORDERED: Glycopyrrolate 0.2 MG/ML 2 ML SYRINGE IVPUSH ONE (09:00)
[2016-12-29 10:04] VITALS: BP 138/88
--- NOTE | 2016-12-29 17:19 | OR ---
DATE OF PROCEDURE: 12/29/2016 PREOPERATIVE DIAGNOSES: Nausea, vomiting, and epigastric pain associated with diarrhea. POSTOPERATIVE DIAGNOSES: 1. Small hiatal hernia associated with mild gastroesophageal reflux disease. 2. Mild antral gastritis. OPERATIVE PROCEDURES: Esophagogastroduodenoscopy with, 1. Biopsies of the antrum for CLOtest. 2. Biopsies of the esophagogastric junction for histologic evaluation. ANESTHESIA: IV sedation. INDICATION FOR PROCEDURE: This is a 46-year-old presenting with recent increasing nausea and vomiting along with some diarrhea. She also has some epigastric pain. She is not presently on any antisecretory medications. Plan is to proceed with an upper GI endoscopy with biopsies as indicated. Potential risks including bleeding and perforation were discussed, and the patient wishes to proceed. DETAILS OF PROCEDURE: The patient was taken to the operating room and placed in a left lateral decubitus position. IV sedation was administered after which the upper GI endoscope was passed orally through the length of the esophagus into the stomach with retroflexion view of the fundus, thereafter through the pyloric channel and into the duodenum to the junction of 3rd and 4th portions. FINDINGS: Included normal hypopharynx, larynx, upper esophageal sphincter, and esophageal body. At the EG junction, there was a small hiatal hernia present. There was some mild edema and friability of the distal esophageal mucosa. No erosions or ulcers were seen and no stricturing identified. Apart from the small hiatal hernia, the proximal stomach was unremarkable. There was some mild patchy redness in the pre-pyloric area, but without erosions or ulcers, and the pyloric channel and duodenum were unremarkable. At this point, biopsies were obtained from the antrum and sent for CLOtest for H. pylori. Multiple biopsies were obtained from the esophagogastric junction and sent for histologic evaluation. Minimal bleeding from the biopsy sites was seen and the procedure then concluded. The patient will be started on Protonix 40 mg a day and then she will be following up with Alfred Chan PA-C in [facility] in 7-10 days. Marcel Nguyen MD /[id number]
== END 2016-12-29 10:34 | disposition home or self-care (01) ==
LOC: JP.SDS 07:01
PROVIDERS: ATTEND Surgery
DX: K31.89 Other diseases of stomach and duodenum (principal); K44.9 Diaphragmatic hernia without obstruction or gangrene; I10 Essential (primary) hypertension; J45.909 Unspecified asthma, uncomplicated; F41.9 Anxiety disorder, unspecified; F32.9 Major depressive disorder, single episode, unspecified; E11.9 Type 2 diabetes mellitus without complications; E03.9 Hypothyroidism, unspecified; E66.9 Obesity, unspecified; Z79.4 Long term (current) use of insulin; Z88.0 Allergy status to penicillin; Z88.8 Allergy status to other drugs, medicaments and biological substances
CPT/HCPCS: 43239; 87081; J2250; J2704; J3010; J7042; 88305

== ENCOUNTER 2017-12-30 03:40 | Emergency (ER) | payer MEDICAID ==
[2017-12-30 03:56] VITALS: BP 147/84
[2017-12-30] MEDS ORDERED: Ketorolac 60 MG/2 ML SDV IM ONE (04:08)
--- NOTE | 2017-12-30 04:11 | EDM.PDOC ---
ED HPI GENERAL MEDICAL PROBLEM - General Chief Complaint: Lower Extremity Injury/Pain Stated Complaint: RIGHT LEG PAIN Time Seen by Provider: 12/30/17 04:08 Source of Information: Reports: Patient, RN Notes Reviewed History Limitations: Reports: No Limitations - History of Present Illness INITIAL COMMENTS - FREE TEXT/NARRATIVE: 47-year-old female presents to the emergency department today complaint of right leg pain, she states she's had pain for about 24 hours, the reason she presents to the emergency department today for a.m. is that she states she cannot take the pain any longer. 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 periods of time remote history of DVT in the family Right Leg Pain Score (Numeric/FACES): 8 - Related Data Allergies Allergy/AdvReac Type Severity Reaction Status Date / Time Penicillins Allergy Hives Verified 12/30/17 03:56 atorvastatin calcium AdvReac Leg Cramps Verified 12/30/17 03:56 [From Lipitor] gemfibrozil AdvReac Indigestion Verified 12/30/17 03:56 lisinopril AdvReac Cough Verified 12/30/17 03:56 Home Meds: Home Meds ClonazePAM [KlonoPIN] 0.5 mg PO BID PRN 10/28/14 [History] Escitalopram [Lexapro] 20 mg PO BID 10/28/14 [History] Fenofibrate Nanocrystallized [Fenofibrate] 145 mg PO DAILY 10/28/14 [History] Levothyroxine [Levothroid] 137 mcg PO DAILY 10/28/14 [History] Montelukast Sodium [Singulair] 10 mg PO DAILY 10/28/14 [History] Simvastatin [Zocor] 60 mg PO BEDTIME 10/28/14 [History] buPROPion [buPROPion XL] 300 mg PO DAILY 10/28/14 [History] traZODone 50 mg PO BEDTIME PRN 10/28/14 [History] Albuterol [Ventolin HFA] 2 puff IH Q4H PRN 10/12/15 [History] Nitroglycerin [Nitrostat] 0.4 mg SL ASDIRECTED PRN 10/12/15 [History] Gabapentin [Neurontin] 600 mg PO TID 10/18/16 [History] Hydrochlorothiazide 25 mg PO DAILY 10/18/16 [History] Methocarbamol 500 - 1,500 mg PO QID 10/18/16 [History] Potassium Chloride 20 meq PO BID 10/19/16 [History] Aspirin [Adult Low Dose Aspirin EC] 81 mg PO DAILY 12/21/16 [History] Fish Oil/[place]-3 Fatty Acids [Fish Oil 1,000 MG] 1,000 mg PO DAILY 12/21/16 [ History] Ondansetron [Zofran] 4 mg PO Q8H PRN 12/21/16 [History] SUMAtriptan [Imitrex] 50 mg PO ASDIRECTED PRN 12/21/16 [History] glipiZIDE [Glipizide ER] 1 tab PO DAILY 12/30/17 [History] Past Medical History HEENT History: Reports: Impaired Vision, Sinusitis Cardiovascular History: Reports: Angina, CAD, Heart Murmur, High Cholesterol, Hypertension Respiratory History: Reports: Asthma, Bronchitis, Recurrent Gastrointestinal History: Reports: Gastritis, GERD 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: Reports: Urinary Incontinence, Other (See Below) Other 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: 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: Other OB/BYN History: HYSTERECTOMY FOR PRE-CANCER ON CERVIX Musculoskeletal History: Reports: Arthritis, Back Pain, Chronic, Other (See Below) Other Musculoskeletal History: spinal stenosis Neurological History: Reports: Headaches, Chronic, Migraines Psychiatric History: Reports: Anxiety, Depression, Mood Swings, Panic Attack Other Psychiatric History: Seasonal affective disorder Endocrine/Metabolic History: Reports: Diabetes, Type II, Hypothyroidism, Obesity /BMI 30+ - Infectious Disease History Infectious Disease History: 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 - Past Surgical History HEENT Surgical History: Reports: Adenoidectomy, Tonsillectomy GI Surgical History: Reports: Cholecystectomy, Colonoscopy, EGD, Hernia Repair/ Other, Kayode Fundoplication, Other (See Below) Female Surgical History: Reports: Hysterectomy, Salpingo-Oophorectomy Musculoskeletal Surgical History: Reports: Carpal Tunnel Social & Family History - Family History Cardiac: Reports: CAD, Hypertension Psychiatric: Reports: Anxiety, Depression Endocrine/Metabolic: Reports: Diabetes, type II - Tobacco Use Smoking Status *Q: Light Tobacco Smoker Years of Tobacco use: 30 Packs/Tins Daily: 0.4 - Caffeine Use Caffeine Use: Reports: Soda Other Caffeine Use: 1 cup a day - Recreational Drug Use Recreational Drug Use: No Review of Systems - Review of Systems Review Of Systems: See Below Constitutional: Reports: No Symptoms Respiratory: Reports: No Symptoms Cardiovascular: Reports: No Symptoms GI/Abdominal: Reports: No Symptoms Musculoskeletal: Reports: Leg Pain Skin: Reports: No Symptoms Neurological: Reports: No Symptoms ED EXAM, GENERAL - Physical Exam Exam: See Below Free Text/Narrative:: examination of the leg of right side I don't appreciate any erythema there is no edema there is no rash I can't elicit any point tenderness describes pain from the hip to the knee and up paresthetica region, Mohini's test negative Exam Limited By: No Limitations General Appearance: Alert, WD/WN, No Apparent Distress Respiratory/Chest: No Respiratory Distress Course - Vital Signs Last Recorded V/S: Last Vital Signs Temp 96.3 F 12/30/17 03:54 Pulse 67 12/30/17 03:54 Resp 16 12/30/17 03:54 BP 147/84 H 12/30/17 03:54 Pulse Ox 99 12/30/17 03:54 - Orders/Labs/Meds Labs: Laboratory Tests 12/30/17 12/30/17 12/30/17 Range/Units 04:35 04:35 04:35 WBC 9.1 (4.5-11.0) K/uL RBC 5.00 (3.30-5.50) M/uL Hgb 13.0 (12.0-15.0) g/dL Hct 41.3 (36.0-48.0) % MCV 83 (80-98) fL MCH 26 L (27-31) pg MCHC 32 (32-36) % Plt Count 342 (150-400) K/uL Neut % (Auto) 58 (36-66) % Lymph % (Auto) 32 (24-44) % [place] % (Auto) 7 H (2-6) % Eos % (Auto) 3 (2-4) % Baso % (Auto) 0 (0-1) % D-Dimer, Quantitative < 100 (0.0-400.0) ng/mL Sodium 136 L (140-148) mmol/L Potassium 3.7 (3.6-5.2) mmol/L Chloride 100 (100-108) mmol/L Carbon Dioxide 26 (21-32) mmol/L Anion Gap 13.7 (5.0-14.0) mmol/L BUN 30 H D (7-18) mg/dL Creatinine 1.4 H D (0.6-1.0) mg/dL Est Cr Clr Drug Dosing 41.09 mL/min Estimated GFR (MDRD) 40 L (>60) Glucose 193 H (74-106) mg/dL Calcium 9.4 (8.5-10.1) mg/dL Meds: Medications Discontinued Medications Generic Name Dose Route Start Last Admin Trade Name Mati PRN Reason Stop Dose Admin Ketorolac Tromethamine 60 mg 12/30/17 04:08 12/30/17 04:20 Toradol IM 12/30/17 04:09 60 mg ONETIME ONE Administration Departure - Departure Time of Disposition: 05:22 Disposition: Home, Self-Care 01 Condition: Fair Clinical Impression: Leg pain, right Spinal stenosis Qualifiers: Spinal region: lumbar Neurogenic claudication status: unspecified Qualified Code(s): M48.061 - Spinal stenosis, lumbar region without neurogenic claudication - Discharge Information Referrals: PCP,None [Primary Care Provider] - Forms: ED Department Discharge Additional Instructions: Use ibuprofen for baseline pain control, use hydrocodone for breakthrough pain, please keep your follow-up appointment with your primary care provider on Sunday of next week - Assessment/Plan Plan: Assessment Acuity = acute Site and laterality = right leg pain complicated patient known history of diabetes mellitus type 2 Etiology = unclear as Manifestations = none Location of injury = Home Lab values = CBC, CMP unremarkable except for creatinine elevated 1.4 consistent chronic renal failure stage GIII B, d-dimer was negative Plan She did take some relief from the Toradol injection, discharge home with hydrocodone 5/325 one tablet by mouth 3 times a day when necessary total #10 she 'll follow-up with her primary care provider on Sunday of next week This note was dictated using [employer] voice recognition software please call with any questions on syntax or grammar.
== END 2017-12-30 05:33 | disposition home or self-care (01) ==
LOC: JP.ED 03:40
DX: M48.061 Spinal stenosis, lumbar region without neurogenic claudication (principal); M79.604 Pain in right leg; I10 Essential (primary) hypertension; E11.9 Type 2 diabetes mellitus without complications; E03.9 Hypothyroidism, unspecified; F17.210 Nicotine dependence, cigarettes, uncomplicated; Z88.0 Allergy status to penicillin; Z88.8 Allergy status to other drugs, medicaments and biological substances; Z79.899 Other long term (current) drug therapy; Z79.82 Long term (current) use of aspirin
CPT/HCPCS: 36415; 80048; 85025; 85379; 96372; 99284; J1885

== ENCOUNTER 2024-02-01 18:39 | Emergency (ER) | payer OTHER, MEDICAID ==
[2024-02-01 19:55] VITALS: BP 133/95; PULSE 87
== END 2024-02-01 21:41 | disposition home or self-care (01) ==
LOC: JP.ED 18:39
DX: S13.4XXA Sprain of ligaments of cervical spine, initial encounter (principal); I10 Essential (primary) hypertension; E78.00 Pure hypercholesterolemia, unspecified; K21.9 Gastro-esophageal reflux disease without esophagitis; I25.10 Atherosclerotic heart disease of native coronary artery without angina pectoris; E11.9 Type 2 diabetes mellitus without complications; E03.9 Hypothyroidism, unspecified; Z86.16 Personal history of COVID-19; Z90.49 Acquired absence of other specified parts of digestive tract; Z90.710 Acquired absence of both cervix and uterus; Z88.0 Allergy status to penicillin; Z88.1 Allergy status to other antibiotic agents; Z88.8 Allergy status to other drugs, medicaments and biological substances; Z79.899 Other long term (current) drug therapy; Z79.82 Long term (current) use of aspirin; Z79.890 Hormone replacement therapy; Z79.84 Long term (current) use of oral hypoglycemic drugs; Z79.85 Long-term (current) use of injectable non-insulin antidiabetic drugs; Z87.891 Personal history of nicotine dependence; V49.49XA Driver injured in collision with other motor vehicles in traffic accident, initial encounter; Y93.89 Activity, other specified
CPT/HCPCS: 70450; 72125; 76377; 99284

== ENCOUNTER 2025-01-23 06:26 | Day surgery (SDC) | payer MEDICAID, OTHER ==
[2025-01-23] MEDS: Lactated Ringers 1,000 ML IV SCH (06:53)
[2025-01-23] MEDS ORDERED: fentaNYL 100 MCG/2 ML SDV ONE (07:13)
[2025-01-23] MEDS ORDERED: Midazolam 1 MG/ML 2 ML SDV ONE (07:13)
[2025-01-23] MEDS ORDERED: Propofol 200 MG/20 ML SDV ONE (07:13)
[2025-01-23 08:37] VITALS: BP 116/69; PULSE 61
== END 2025-01-23 09:00 | disposition home or self-care (01) ==
LOC: JP.SDS 06:26
PROVIDERS: ATTEND Surgery
DX: Z12.11 Encounter for screening for malignant neoplasm of colon (principal); R19.5 Other fecal abnormalities; D12.3 Benign neoplasm of transverse colon; D12.4 Benign neoplasm of descending colon; K57.30 Diverticulosis of large intestine without perforation or abscess without bleeding; I10 Essential (primary) hypertension; E11.9 Type 2 diabetes mellitus without complications; Z88.0 Allergy status to penicillin; Z88.8 Allergy status to other drugs, medicaments and biological substances; Z88.1 Allergy status to other antibiotic agents; Z79.82 Long term (current) use of aspirin; Z79.899 Other long term (current) drug therapy
CPT/HCPCS: 00811; 45385; J2250; J2704; J3010; J7120